=== PATIENT | male | born 1950 | race Caucasian/White ===

== ENCOUNTER 2018-08-01 13:30 | Inpatient (IN) | payer BC, MEDICARE ==
[2018-08-01] MEDS ORDERED: HYDROcodone/Acetaminophen 5/325 mg Tablet ONE (13:48)
[2018-08-01] MEDS ORDERED: PHENYLEPHRINE-NS 100 MCG/ML 10 ML SYRINGE ONE (13:55)
[2018-08-01] MEDS ORDERED: Ondansetron PF 4 MG/2 ML Vial ONE ×2 (13:55→14:56)
[2018-08-01] MEDS ORDERED: PROPOFOL 200 MG/20 ML VIAL ONE (13:55)
[2018-08-01] MEDS ORDERED: Lidocaine 1% PF 5 ML VIAL ONE (13:55)
[2018-08-01] MEDS ORDERED: Rocuronium Bromide 10 MG/ML (10ML VIAL) ONE (13:55)
[2018-08-01] MEDS ORDERED: Dexamethasone 20 MG/5 ML VIAL ONE (13:55)
[2018-08-01] MEDS ORDERED: Glycopyrrolate 0.2 MG/ML 5 ML SYRINGE ONE (13:55)
--- NOTE | 2018-08-01 14:41 | RAD ---
RIGHT FEMUR 2 VIEWS: Date: 08/01/18 HISTORY: Fall. Right leg injury. FINDINGS: Impacted, mildly comminuted, oblique fracture of the femoral neck is present with slight varus angula tion and superior displacement of the distal fragment. Mild degenerative changes of the right hip. Fe moral shaft is intact. IMPRESSION: Right femoral neck fracture. POS: [facility]
[2018-08-01] MEDS ORDERED: Morphine 4 MG/ML VIAL ONE (14:56)
[2018-08-01 15:01] LABS: #Lymphocytes 0.8 thou/uL (1.20-3.40); #Monocytes 0.5 thou/uL (0.11-0.59); %Basophils 0.3 % (0.0-1.0); %Eosinophils 0.2 % (0.0-10.0); %Lymphocytes 8.9 % (21.0-51.0); %Monocytes 5.4 % (0.0-10.0); %Neutrophils 85.3 % (42.0-75.0); Hemoglobin 15.3 g/dL (14.0-18.0); Mean Corpuscular HGB CONC 33.7 g/dL (32.0-36.0); Mean Corpuscular Volume 94.9 fL (78.0-98.0); Mean Platelet Volume 7.3 fL (7.4-10.4); Platelet Count 225 thou/uL (130-400); RBC Distribution Width 11.6 % (11.5-14.5); Red Blood Cell (RBC) Count 4.79 mill/uL (4.70-6.10); White Blood Cell (WBC) Count 9.4 thou/uL (4.8-10.8)
[2018-08-01 15:09] LABS: PTT 26.5 SEC (22.9-36.1); Prothrombin Time 13.5 SEC (12.0-14.7)
[2018-08-01 15:26] LABS: ALT (SGPT) 29 U/L (8-55); AST (SGOT) 24 U/L (5-34); Albumin 4.5 g/dL (3.4-4.8); Alkaline Phosphatase 95 U/L (40-150); Anion Gap 14 mmol/L (10-20); BUN (Urea Nitrogen) 12 mg/dL (8.4-25.7); Bilirubin, Total 1.6 mg/dL (0.2-1.2); Calc. Creatinine Clearance 0 mL/min (70-130); Calcium 9.5 mg/dL (7.8-10.44); Carbon Dioxide 25 mmol/L (23-31); Chloride 102 mmol/L (98-107); Estimated GFR-MDRD Greater than 90; Globulin 2.9 g/dL (2.4-3.5); Glucose 126 mg/dL (80-115); Potassium 3.9 mmol/L (3.5-5.1); Protein, Total 7.4 g/dL (5.8-8.1); Sodium 137 mmol/L (136-145)
[2018-08-01] MEDS ORDERED: Cyclobenzaprine 10 MG TAB ONE (15:50)
[2018-08-01] MEDS ORDERED: Dextrose 5% in Water 1,000 ML IV PRN (16:24)
[2018-08-01] MEDS ORDERED: Dextrose 50% Abboject 50 ML SYRINGE SLOW IVP PRN (16:24)
[2018-08-01] MEDS ORDERED: Ondansetron PF 4 MG/2 ML Vial IVP PRN (16:24)
[2018-08-01] MEDS ORDERED: Cyclobenzaprine 10 MG TAB PO PRN (16:24)
[2018-08-01] MEDS ORDERED: traMADol HCl 50 MG TAB PO PRN ×2 (16:24)
[2018-08-01] MEDS ORDERED: hydrALAZINE 20 MG/ML VIAL SLOW IVP PRN (16:24)
[2018-08-01] MEDS ORDERED: Promethazine HCl 25 MG/ML VIAL IM PRN ×2 (16:24→18:22)
--- NOTE | 2018-08-01 17:02 | HP ---
REFERRING PHYSICIAN: Jacky Fairchild MD. TRAUMA SURGEON: Alannah Wild MD. CONSULTING PHYSICIAN: Miguelito Pack MD. HISTORY OF PRESENT ILLNESS: Mr. Delacruz is a 68-year-old male patient who presented to the emergency department after he had a fall today. This morning, the patient was using a pole saw to cut a large branch. When the branch finally came loose, it hit the pole saw, which pushed the patient down and he fell onto his right side. He denies loss of consciousness. He does take a full-dose aspirin daily. When he hit the ground, he reported he did not strike his head and did not lose consciousness. He was not able to ambulate after the fall and hopped over to his ATV and drove himself back to his home. He denies nausea, vomiting, numbness and tingling as well. REVIEW OF SYSTEMS: All additional 10-point review of systems negative except as indicated above. PAST MEDICAL HISTORY: He has CAD, hyperlipidemia, and hypertension. PAST SURGICAL HISTORY: He has had a five-vessel bypass in 2007. SOCIAL HISTORY: He denies tobacco use. He denies drug use. He drinks 3 beers per day. He lives at home with his . FAMILY HISTORY: The patient's son has a history of malignant hyperthermia. MEDICATIONS: 1. Metoprolol 50 daily. 2. Aspirin 325 daily. 3. Fish oil. 4. Atorvastatin 40 daily. 5. Lisinopril 5 daily. ALLERGIES: NO KNOWN DRUG ALLERGIES. PHYSICAL EXAMINATION: PRIMARY ASSESSMENT: Airway intact. Breath sounds equal bilaterally. 2+ distal pulses palpable in the radials, femorals, and DPs bilaterally. GCS is 15. Gross motor and sensation intact. Pupils are reactive to light. No lacerations, abrasions, or external bleeding. SECONDARY SURVEY: HEAD: Normocephalic and atraumatic. No gross palpable skull deformities or tenderness. EYES: Pupils 3 to 2 bilaterally. Pupils equal, round, reactive to light. ENT: No hemotympanum. No epistaxis. No septal hematoma. Midface stable to manipulation. No blood in the oropharynx. Dentition intact. No anterior neck injury/crepitus/tenderness. C-SPINE: No step-offs or deformities, nontender. C-collar not in place. CHEST: Nontender. No crepitus. No abrasions or ecchymosis. Equal chest movement. ABDOMEN: Soft, nontender, nondistended. PELVIS: Stable to palpation. Nontender. No abrasions or ecchymosis. RECTAL: Deferred. GENITOURINARY: Deferred. EXTREMITIES: Shortening of the right lower extremity with tenderness over the right anterior thigh. No abrasions or ecchymosis noted. 2+ pulses in the bilateral radials, femorals, and DPs. BACK/SPINE: No step-offs or deformities or tenderness to palpation of the thoracic and lumbar spine. No abrasions or ecchymosis noted. NEURO: 5/5 strength in bilateral hand stemmer, plantar flexion, and dorsiflexion. Gross normal sensation x4. LABORATORY FINDINGS: White blood cell count 9.4, hemoglobin 15.3, hematocrit 45.4, platelets 225. INR 1.0. Sodium 134, potassium 3.9, chloride 102, carbon dioxide 25, BUN 12, creatinine 0.84, glucose 126. DIAGNOSTIC FINDINGS: X-ray of the right femur demonstrates a right femoral neck fracture. ASSESSMENT: 1. Status post mechanical fall from standing. 2. Right femoral neck fracture. 3. History of five-vessel bypass, coronary artery disease, hypertension, and hyperlipidemia. 4. Alcohol abuse. PLAN: The patient will be admitted to the Trauma Service on the floor. Dr. Pack with Orthopedic Surgery has been consulted and will likely take the patient to the OR today. If he is not able to take him today, then the patient will go tomorrow morning. He is to be n.p.o. for surgery possibly today and if he does not go today, he can have a diet and be n.p.o. after midnight. He has normal saline at 120 an hour. He will have pain control with scheduled Tylenol, ibuprofen, and gabapentin as well as p.r.n. Flexeril and tramadol. He will also be started on Serax. He will have physical and occupational therapy postop. He will have SCDs, but will not have chemo DVT prophylaxis. He will be restarted on all of his home medications except for the aspirin postoperatively. The patient was seen and examined by myself and Dr. Wild this afternoon in the emergency department. Job ID: [id number]
[2018-08-01] MEDS ORDERED: Midazolam HCl 2 mg/2 ml Vial ONE (17:11)
[2018-08-01] MEDS ORDERED: Fentanyl 100 MCG/2 ML VIAL ONE (17:11)
[2018-08-01] MEDS ORDERED: Lidocaine 2% Jelly 5 ML TUBE ONE (17:11)
[2018-08-01] MEDS ORDERED: Propofol 1,000 MG/100 ML VIAL IV ONE (17:12)
[2018-08-01] MEDS ORDERED: Prevnar 13-Val Conj/PF 0.5 ML SYRINGE IM ONE (17:45)
[2018-08-01] MEDS ORDERED: HYDROmorphone 2 MG/ML VIAL SLOW IVP PRN (18:22)
[2018-08-01] MEDS ORDERED: Ondansetron HCl/PF 4 MG/2 ML Vial IVP PRN (18:22)
[2018-08-01] MEDS ORDERED: Promethazine HCl 25 MG/ML VIAL SLOW IVP PRN (18:22)
[2018-08-01] MEDS: Oxazepam 10 MG CAP PO SCH (19:50)
[2018-08-01] MEDS: Sodium Chloride 0.9% 1,000 ML IV SCH (19:50)
--- NOTE | 2018-08-01 20:32 | RAD ---
TWO VIEWS RIGHT HIP 08/01/18 HISTORY: Right hip fracture. Open reduction and internal fixation. Two views right hip obtained. There is open reduction and internal fixation of the right femoral neck. Proximal and distal fracture fragments are in good anatomic alignment. IMPRESSION: Open reduction internal fixation of right femoral fracture. POS: [facility]
[2018-08-01] MEDS: Ibuprofen 800 MG TAB PO SCH (21:24)
[2018-08-01] MEDS: Senokot S 8.6-50 MG TAB PO SCH (21:24)
[2018-08-01] MEDS: Famotidine/PF 20 mg/2ml Vial SLOW IVP SCH (21:24)
[2018-08-01] MEDS: Gabapentin 100 MG CAP PO SCH (21:24)
[2018-08-01] MEDS ORDERED: CEFAZOLIN 1 GM VIAL SLOW IVP SCH (22:00)
[2018-08-01 22:15] VITALS: BMI 25.8
[2018-08-02] MEDS: Oxazepam 10 MG CAP PO SCH ×4 (00:40→23:48)
[2018-08-02] MEDS: Acetaminophen 1,000 MG in Premix Bag 1 BAG IVPB SCH ×5 (00:40→18:05)
[2018-08-02] MEDS: CEFAZOLIN 2 GM in Premix Bag 1 BAG IVPB SCH ×3 (00:41→16:22)
[2018-08-02] MEDS: Sodium Chloride 0.9% 1,000 ML IV SCH ×2 (00:43→10:56)
[2018-08-02 05:24] LABS: #Lymphocytes 0.5 thou/uL (1.20-3.40); #Monocytes 0.6 thou/uL (0.11-0.59); #Neutrophils 9.4 thou/uL (1.40-6.50); %Basophils 0.1 % (0.0-1.0); %Eosinophils 0.1 % (0.0-10.0); %Lymphocytes 4.7 % (21.0-51.0); %Monocytes 5.5 % (0.0-10.0); %Neutrophils 89.6 % (42.0-75.0); Hemoglobin 13.7 g/dL (14.0-18.0); Mean Corpuscular HGB CONC 33.4 g/dL (32.0-36.0); Mean Platelet Volume 7.5 fL (7.4-10.4); Platelet Count 215 thou/uL (130-400); RBC Distribution Width 11.6 % (11.5-14.5); Red Blood Cell (RBC) Count 4.28 mill/uL (4.70-6.10); White Blood Cell (WBC) Count 10.5 thou/uL (4.8-10.8)
[2018-08-02] MEDS: Ibuprofen 800 MG TAB PO SCH ×3 (05:39→21:04)
[2018-08-02 05:45] LABS: Anion Gap 12 mmol/L (10-20); BUN (Urea Nitrogen) 13 mg/dL (8.4-25.7); Calc. Creatinine Clearance 79 mL/min (70-130); Carbon Dioxide 24 mmol/L (23-31); Chloride 103 mmol/L (98-107); Estimated GFR-MDRD 75; Glucose 299 mg/dL (80-115); Magnesium 1.8 mg/dL (1.6-2.6); Phosphorus 3.2 mg/dL (2.3-4.7); Potassium 4.8 mmol/L (3.5-5.1); Sodium 134 mmol/L (136-145)
[2018-08-02] MEDS: Famotidine/PF 20 mg/2ml Vial SLOW IVP SCH ×2 (08:55→21:04)
[2018-08-02] MEDS: Polyethylene Glycol 3350 17 GM Packet PO SCH (08:56)
[2018-08-02] MEDS: Senokot S 8.6-50 MG TAB PO SCH ×2 (08:57→21:03)
[2018-08-02] MEDS: Metoprolol Tartrate 50 MG TAB PO SCH (08:58)
[2018-08-02] MEDS: Lisinopril 5 MG TAB PO SCH (08:58)
[2018-08-02] MEDS: Gabapentin 100 MG CAP PO SCH ×3 (08:58→21:03)
[2018-08-02] MEDS ORDERED: Magnesium 2 GM/50 ML 2 GM in Premix Bag 1 BAG IVPB SCH (09:00)
[2018-08-02] MEDS ORDERED: Aspirin 325 MG TAB PO SCH (09:00)
--- NOTE | 2018-08-02 14:10 | PRG ---
DATE OF SERVICE: SUBJECTIVE: The patient was seen this morning sitting up in a chair in his room. He reported pain was well controlled. He had worked with physical therapy and was able to ambulate with a walker down the hallway. He is tolerating a regular diet and voiding without issues. Denies nausea, vomiting, or diarrhea. He would like to go home with home physical therapy. OBJECTIVE: VITAL SIGNS: Temperature 97.7, pulse 66, respirations 18, O2 saturation 93% on room air, blood pressure 137/76. GENERAL: Well-appearing middle-aged male, sitting up in chair with no signs of acute distress. NEUROLOGIC: GCS is 15. Gross motor and sensation intact in all extremities. PULMONARY: Equal chest rise and fall. Clear breath sounds bilaterally. No signs of acute respiratory distress. CARDIAC: Regular rate and rhythm. No murmurs, gallops, or rubs. ABDOMEN: Soft, nontender, nondistended. EXTREMITIES: Minimal tenderness to right thigh, otherwise no other signs of trauma. Extremity strength and sensation intact. No significant swelling noted. 2+ pulses in all 4 extremities. LABORATORY FINDINGS: White count 10.5, hemoglobin 13.7, hematocrit 41.1, platelets 215. Sodium 134, potassium 4.8, chloride 103, carbon dioxide 24, BUN 13, creatinine 1.0, glucose 299, phos 3.2, magnesium 1.8. DIAGNOSTIC FINDINGS: There are no diagnostic findings to report. ASSESSMENT: 1. Status post mechanical fall from standing. 2. Right femoral neck fracture. 3. Coronary artery disease, cardiac bypass x5, hyperlipidemia, hypertension, and alcohol use. PLAN: The patient will continue to receive supportive care as well as physical and occupational therapy. We will discontinue normal saline ane he will continue his home medications. He is on aspirin for DVT prophylaxis as well as SCDs. He will receive phosphorus and magnesium replacements today. He can continue on a regular diet. If the patient works well with physical therapy, he may be able to be discharged home tomorrow with home PT. field crop farm worker has been consulted to look into home physical therapy. The patient reports that he has several friends and family that are around him to help take care of him at home. The patient was discussed with Dr. Aguila this morning after rounds. Job ID: [id number]
--- NOTE | 2018-08-02 14:34 | OP ---
DATE OF PROCEDURE: 08/01/2018 PREOPERATIVE DIAGNOSIS: Right subcapital femoral neck fracture. POSTOPERATIVE DIAGNOSIS: Right subcapital femoral neck fracture. PROCEDURE PERFORMED: Closed reduction and screw fixation of right femoral neck fracture. ANESTHESIA: General. IMPLANTS: Synthes 7.3 mm cannulated screws x3. ESTIMATED BLOOD LOSS: 50 mL. COMPLICATIONS: None. DRAINS: None. SPECIMENS: None. OUTCOME: Near-anatomic alignment. INDICATIONS: The patient is a pleasant 68-year-old gentleman who was trimming tree limbs when a large limb came down knocked him into the ground and he sustained a mildly displaced right subcapital femoral neck fracture. After discussion with the patient including risks and benefits, we decided to proceed with closed reduction and screw stabilization for this fracture. Risks include, but are not limited to bleeding, infection, nerve injury, DVT, PE, nonunion, AVN, need for revision a total hip arthroplasty. The patient appears to understand and does wish to proceed. DESCRIPTION OF PROCEDURE: The patient was brought to the operating room and a time-out performed followed by induction of general anesthesia. Next, a closed reduction maneuver was performed after the patient was transferred to the fracture table with the hip brought into flexion and then traction and then while the leg was brought into extension, internal rotation applied. It was then placed in a traction boot with gentle traction applied. AP and lateral C-arm images were obtained that showed significant improvement in overall alignment of the fracture with just a slight fracture gap at the inferior neck. Next, a sterile prep and drape was performed in the right lateral thigh. Under C-arm guidance, a small incision was made laterally and then dissection carried down bluntly to the underlying fascia of the tensor fascia. This was incised in line with skin incision. Next, a threaded guidewire was passed through the lateral cortex of the femur up along the inferior portion of the femoral neck and then into the femoral head. This was followed by passage of two additional threaded guidewires, one anterior and superior to the first and the other one posterior and superior to the first. Once acceptable position of the guidewires was obtained, measurement was taken off these guidewires for screw length. The lateral cortex of the femur was perforated with the drill and then three appropriate length cannulated screws passed over these guidewires into the femoral head getting excellent purchase. The guidewires were then removed. Final AP and lateral C-arm images were obtained that showed a fracture with near-anatomic alignment. The incision was irrigated with normal saline and then closed in layers with 2-0 Vicryl for fascia and subcutaneous closure followed by romero for the skin. Xeroform gauze and tape dressing was applied to the thigh and then the patient was transferred to the recovery room in stable condition. There were no complications. The patient tolerated the procedure well. Job ID: [id number]
[2018-08-02] MEDS ORDERED: Prevnar 13-Val Conj/PF 0.5 ML SYRINGE IM ONE (17:00)
[2018-08-02] MEDS ORDERED: Atorvastatin Calcium 40 MG TAB PO SCH (21:00)
--- NOTE | 2018-08-02 23:37 | PDOC.GSPN ---
Surgery Progress Note: Subj - Subjective Narrative: Patient was seen and personally examined in the emergency room with the trauma PA at the time of admission. I agree with the history and treatment plan as outlined in her notes. Surgery Progress Note: Obj - Vital signs Vital signs: Vital Signs - Most Recent Temp Pulse Resp BP Pulse Ox 97.8 F 72 16 96/59 L 94 L 08/02/18 21:32 08/02/18 21:32 08/02/18 21:32 08/02/18 21:32 08/02/18 21:32 Surgery Progress Note: Results - Labs Result Diagrams: 08/02/18 04:54 08/02/18 04:54 Lab results: Laboratory Results - last 24 hr 08/02/18 17:04 POC Glucose 167 H
[2018-08-03] MEDS: Ibuprofen 800 MG TAB PO SCH (05:56)
[2018-08-03 06:15] LABS: #Basophils 0.1 thou/uL (0.0-0.2); #Lymphocytes 1.5 thou/uL (1.20-3.40); #Monocytes 0.6 thou/uL (0.11-0.59); #Neutrophils 7.7 thou/uL (1.40-6.50); %Basophils 0.6 % (0.0-1.0); %Eosinophils 0.5 % (0.0-10.0); %Lymphocytes 14.9 % (21.0-51.0); %Monocytes 6.2 % (0.0-10.0); %Neutrophils 77.8 % (42.0-75.0); Hemoglobin 12.3 g/dL (14.0-18.0); Mean Corpuscular HGB CONC 33.2 g/dL (32.0-36.0); Mean Corpuscular Volume 96.4 fL (78.0-98.0); Mean Platelet Volume 7.2 fL (7.4-10.4); Platelet Count 152 thou/uL (130-400); RBC Distribution Width 11.7 % (11.5-14.5); Red Blood Cell (RBC) Count 3.85 mill/uL (4.70-6.10); White Blood Cell (WBC) Count 9.9 thou/uL (4.8-10.8)
[2018-08-03 06:31] LABS: Anion Gap 10 mmol/L (10-20); BUN (Urea Nitrogen) 12 mg/dL (8.4-25.7); Calc. Creatinine Clearance 91 mL/min (70-130); Calcium 8.4 mg/dL (7.8-10.44); Carbon Dioxide 27 mmol/L (23-31); Chloride 106 mmol/L (98-107); Estimated GFR-MDRD 88; Glucose 137 mg/dL (80-115); Magnesium 2.2 mg/dL (1.6-2.6); Phosphorus 2.9 mg/dL (2.3-4.7); Potassium 3.7 mmol/L (3.5-5.1); Sodium 139 mmol/L (136-145)
[2018-08-03] MEDS ORDERED: Potassium Phosphate 15 MMOL in Sodium Chloride 0.9% 250 ML 250 ML IVPB SCH (07:45)
[2018-08-03] MEDS ORDERED: Potassium Chloride 20 MEQ TAB PO SCH ×2 (08:00→11:00)
[2018-08-03] MEDS: Oxazepam 10 MG CAP PO SCH (08:46)
[2018-08-03] MEDS: Polyethylene Glycol 3350 17 GM Packet PO SCH (08:46)
[2018-08-03] MEDS: Famotidine/PF 20 mg/2ml Vial SLOW IVP SCH (08:46)
[2018-08-03] MEDS: Lisinopril 5 MG TAB PO SCH (08:47)
[2018-08-03] MEDS: Metoprolol Tartrate 50 MG TAB PO SCH (08:47)
[2018-08-03] MEDS: Gabapentin 100 MG CAP PO SCH (08:47)
[2018-08-03] MEDS: Senokot S 8.6-50 MG TAB PO SCH (08:48)
[2018-08-03] MEDS ORDERED: Aspirin 81 mg Enteric Coated Tablet PO SCH (09:00)
[2018-08-03 11:52] VITALS: BP 118/67; TEMP 97.6
--- NOTE | 2018-08-03 13:17 | DIS ---
DATE OF ADMISSION: 08/01/2018 DATE OF DISCHARGE: 08/03/2018 ADMISSION DIAGNOSES: Status post mechanical fall from standing and right femoral neck fracture. DISCHARGE DIAGNOSES: Status post mechanical fall from standing and right femoral neck fracture. PROCEDURE: Closed reduction and internal screw fixation of the right femoral neck on August [address] Pack. HOSPITAL COURSE: The patient is a 68-year-old male who presented to the emergency department after a ground level mechanical fall. He states he was using a pole saw to cut a branch and when a branch came loose it pushed on the pole saw and subsequently he fell down onto his right hip. He did not have a loss of consciousness. He did not strike his head. He is not taking any blood thinners. He arrived to the emergency department and subsequently was found to have a right femoral neck fracture. He was admitted to the Trauma Service in the next day. He went to the OR with Dr. Pack and received a closed reduction and screw fixation of the right femoral neck. Postoperatively, he worked with physical therapy and was able to ambulate with a walker. He has good help at home with family nearby that is willing to help him. He will be discharged home with outpatient physical therapy. At the time of discharge, the patient was tolerating a diet. His pain was well controlled and he was voiding without difficulty. DISCHARGE DISPOSITION: Home. DISCHARGE CONDITION: Satisfactory. PHYSICAL EXAMINATION: VITAL SIGNS: Temperature 97.6, pulse 82, respirations 16, oxygen saturation 92% on room air, blood pressure 118/67. GENERAL: Well-appearing middle-aged male, sitting up in chair with no signs of acute distress. NEURO: GCS is 15. Gross motor and sensation intact in all 4 extremities. Pupils equal, round, reactive to light. PULMONARY: Equal chest rise and fall. Clear breath sounds bilaterally. No signs of acute pulmonary distress. CARDIAC: Regular rate and rhythm. No murmurs, gallops, or rubs. GI: Abdomen is soft, nontender, nondistended. EXTREMITIES: Right-sided thigh pain. No signs of acute trauma. Gross motor and sensation intact in all 4 extremities. No significant swelling noted. 2+ pulses in all extremities. DISCHARGE INSTRUCTIONS: The patient was discharged on 50% weightbearing to right lower extremity with a walker. He can have a regular diet and will have outpatient physical therapy. He is to follow up with Dr. Pack in 3-4 weeks. DISCHARGE MEDICATIONS: Include: 1. Aspirin. 2. Atorvastatin. 3. Lisinopril. 4. Metoprolol. 5. Ibuprofen. 6. MiraLAX. 7. Tramadol. DISCHARGE APPOINTMENTS: The patient will follow up with Dr. Pack in 10 days. This is merely a summary of the patient's hospitalization. For full details, please see his medical chart in its entirety. Job ID: [id number]
== END 2018-08-03 13:46 | disposition home or self-care (01) | DRG 482 ==
LOC: ERS 13:30 → SURG A 16:22
PROVIDERS: ADMIT Surgery; ATTEND Surgery
PROC: 0QS634Z Reposition Right Upper Femur with Internal Fixation Device, Percutaneous Approach (ICD-10-PCS; principal; 2018-08-01)
DX: S72.011A Unspecified intracapsular fracture of right femur, initial encounter for closed fracture (principal); I25.10 Atherosclerotic heart disease of native coronary artery without angina pectoris; E78.5 Hyperlipidemia, unspecified; I10 Essential (primary) hypertension; F10.10 Alcohol abuse, uncomplicated; Z95.1 Presence of aortocoronary bypass graft; Z79.82 Long term (current) use of aspirin; Z79.899 Other long term (current) drug therapy; W18.09XA Striking against other object with subsequent fall, initial encounter
CPT/HCPCS: 36415; 36416; 76000; 80048; 80053; 83735; 84100; 85025; 85610; 85730; 86850; 86900; 86901; 90471; 90662; 90670; 93005; 96374; 96375; C1713; C1769; G0008; G0009; J0131; J1100; J2001; J2250; J2270; J2405; J2704; J3010; J3475; J7050; S0028

== ENCOUNTER 2019-12-24 11:16 | Outpatient (CLI) | payer MEDICARE ==
--- NOTE | 2019-12-24 11:37 | RAD ---
EXAM: 3 views of the left hand COMPARISON: None HISTORY: Hand pain FINDINGS: 3 views of the hand shows no evidence of acute fracture or dislocation. No degenerative dimitri nges are seen. No soft tissue swelling is present. IMPRESSION: Unremarkable exam.
--- NOTE | 2019-12-24 11:38 | RAD ---
EXAM: 3 views of the left wrist HISTORY: Wrist pain COMPARISON: None FINDINGS: 3 views of the left wrist shows questionable lucency in the distal metaphysis of the radius which could represent a nondisplaced fracture. Moderate surrounding soft tissue swelling is seen. No degenerative changes are present. IMPRESSION: Possible left distal radius fracture
== END 2019-12-24 11:17 | disposition home or self-care (01) ==
LOC: BICRAD 11:16
PROVIDERS: ATTEND Clinical Nurse Specialist Medical-Surgical
DX: M25.532 Pain in left wrist (principal)